=== PATIENT | female | born 1980 | race Caucasian/White ===

== ENCOUNTER 2019-03-18 10:59 | Observation (INO) | payer MEDICAID, OTHER ==
[2019-03-18] MEDS ORDERED: PREN-96 PO (11:25)
== END 2019-03-18 12:27 | disposition home or self-care (01) | DRG 861 ==
LOC: LDRP 10:59
PROVIDERS: ADMIT Obstetrics & Gynecology; ATTEND Obstetrics & Gynecology
DX: Z34.93 Encounter for supervision of normal pregnancy, unspecified, third trimester (principal); O48.0 Post-term pregnancy; O09.523 Supervision of elderly multigravida, third trimester; Z3A.40 40 weeks gestation of pregnancy
CPT/HCPCS: 59025; 76818; 81002; G0378

== ENCOUNTER 2019-03-20 19:56 | Inpatient (IN) | payer MEDICAID ==
[~2019-03-20] VITALS: Ht 175.3 cm; Wt 121.1 kg
[~2019-03-20 19:56] MED LIST: PREN-96 PO
[2019-03-20 21:13] LABS: Basophils # (auto) 0 uL; Basophils % (auto) 0.5 % (0.0-2.0); Eosinophils # (auto) 0.1 uL; Eosinophils % (auto) 0.8 % (0.0-7.0); Hematocrit 35.6 % (36.0-46.0); Hemoglobin 11.8 g/dL (12.2-16.2); Lymphocytes # (auto) 1.7 uL; Lymphocytes % (auto) 20.5 % (10.0-50.0); Mean Corpuscular Hemoglobin 27.8 pg (28.0-32.0); Mean Corpuscular Hgb Conc. 33.3 g/dL (32.0-36.0); Mean Corpuscular Volume 83.7 fL (80.0-100.0); Monocytes # (auto) 0.8 uL; Monocytes % (auto) 9.3 % (0.0-12.0); Neutrophils # (auto) 5.6 uL; Neutrophils % (auto) 68.9 % (37.0-80.0); Platelet Count (auto) 169 10^3/uL (140-450); Red Blood Cells 4.26 10^6/uL (4.0-5.20); Red Cell Distribution Width 14.1 % (11.8-14.3); White Blood Cell 8.2 10^3/uL (4.4-10.8)
[2019-03-20 21:15] LABS: Urine Bacteria NONE SEEN /hpf (None Seen); Urine Blood Negative /uL (Negative); Urine Hyaline Cast FEW /lpf (0 - 2); Urine Mucus FEW (None Seen); Urine Specific Gravity 1.015 (1.001-1.035); Urine WBC 10 /hpf (0 - 5)
[2019-03-20 21:27] LABS: INR < 0.93 (0.9-1.15); Partial Thromboplastin Time 23.1 sec (23.64-32.05)
[2019-03-20 21:33] LABS: Albumin 2.8 g/dL (3.4-5.0); Calcium 8.6 mg/dL (8.5-10.1); Potassium 3.8 mmol/L (3.5-5.1); Uric Acid 4.9 mg/dL (2.6-6.0)
[2019-03-20 21:36] LABS: BUN/Creatinine Ratio 14.5; Bilirubin, Total 0.3 mg/dL (0.2-1.0); Total Protein 7.3 g/dL (6.4-8.2)
[2019-03-20] MEDS ORDERED: MAGNESIUM SULFATE 100 ML IV STA (22:00)
[2019-03-20] MEDS ORDERED: LACTATED RINGER'S 1,000 ML IV SCH ×3 (22:00→22:45)
[2019-03-20] MEDS ORDERED: LACT. RINGERS/OXYTOCIN 20UNITS 1,000 ML IV SCH (22:02)
[2019-03-20] MEDS ORDERED: MAGNESIUM SULFATE 40MG/ML 1,000 ML IV ONE (22:05)
[2019-03-20] MEDS ORDERED: MAGNESIUM SULFATE 100 ML IV ONE (22:05)
[2019-03-20] MEDS ORDERED: hydrALAZINE HCL 20 MG/ML VL ONE (22:07)
[2019-03-20] MEDS ORDERED: CARBOPROST TROMETHAMINE 250 MCG/1ML VIAL IM PRN (22:15)
[2019-03-20] MEDS ORDERED: hydrALAZINE HCL 20 MG/ML VL IV ONE (22:15)
[2019-03-20] MEDS ORDERED: DERMOPLAST 60ML BOTTLE TOP PRN (22:15)
[2019-03-20] MEDS ORDERED: WITCH HAZEL-GLYCERIN PAD TOP PRN (22:15)
[2019-03-20] MEDS ORDERED: LIDOCAINE 2%HCL (LOCAL ANESTH.) INJ 20ML MDV ID PRN (22:15)
[2019-03-20] MEDS ORDERED: PHISODERM TOP SOLN 240ML BTL TOP PRN (22:15)
[2019-03-20] MEDS: MAGNESIUM SULFATE 40MG/ML 1,000 ML IV SCH (22:37)
[2019-03-21] MEDS ORDERED: hydrALAZINE HCL 20 MG/ML VL IV PRN ×2 (07:15→18:45)
[2019-03-21] MEDS ORDERED: ACETAMINOPHEN 325 MG TAB PO PRN (07:15)
[2019-03-21] MEDS ORDERED: NALBUPHINE HCL 10 MG/1ml INJECTION IV PRN ×2 (15:30→18:45)
[2019-03-21] MEDS: MAGNESIUM SULFATE 40MG/ML 1,000 ML IV SCH (17:44)
[2019-03-21] MEDS ORDERED: ONDANSETRON HCL 4 MG/2 ML VIAL IV PRN (18:00)
[2019-03-21] MEDS ORDERED: DIPHENOXYLATE W/ATROPINE 2.5 MG TAB PO PRN (19:00)
[2019-03-21] MEDS: ACETAMINOPHEN 325 MG TAB PO PRN (21:51)
--- NOTE | 2019-03-21 22:15 | NUR ---
Ambulation: Patient OOB with standby assistance by RN. Patient ambulated to chair with steady gait. . Clean gown provided and bed linen changed. Patient ambulated back to bed with steady gait and no distress noted.
--- NOTE | 2019-03-21 23:00 | NUR ---
Teaching: Reviewed information in [facility] booklet with patient. Discussed benefits of and risks associated with not . Discussed different positions, proper latch, feeding cues, and baby-led . Provided information of medication side effects related to . All questions and concerns addressed at this time. Patient verbalized understanding of information.
[2019-03-21] MEDS: IBUPROFEN 600 MG TAB PO PRN (23:09)
[2019-03-21 23:15] VITALS: BP 135/75
[2019-03-22] VITALS (19 sets, daily range): BP systolic 110–140; BP diastolic 56–88
[2019-03-22] MEDS ORDERED: RHO (D) IMMUNE GLOBULIN 300 MCG INJ IM ONE (00:30)
--- NOTE | 2019-03-22 01:40 | NUR ---
Dr. Dillon calls [facility] for update on PT's last Magnesium level - 4.1 mg/dl. orders received to re-start Magnesium Sulfate at 2gm/hr for a 12 hour duration. Primary nurse, Alexi Mosher RN, given update on aforementioned orders.
[2019-03-22] MEDS ORDERED: MAGNESIUM SULFATE 40MG/ML 1,000 ML IV SCH ×2 (01:46→10:30)
[2019-03-22] MEDS ORDERED: LACTATED RINGER'S 1,000 ML IV SCH (02:00)
--- NOTE | 2019-03-22 03:00 | NUR ---
DTRS 2 +, BREATH SOUNDS EQUAL AND UNLABORED, NO CLONUS NOTED. BLE 1 + NO PITTING EDEMA REMAINS UNCHANGED
--- NOTE | 2019-03-22 04:00 | NUR ---
DTRS 2 +, BREATH SOUNDS EQUAL AND UNLABORED, NO CLONUS NOTED. BLE 1 + NO PITTING EDEMA REMAINS UNCHANGED
--- NOTE | 2019-03-22 05:00 | NUR ---
DTRS 2 +, BREATH SOUNDS EQUAL AND UNLABORED, NO CLONUS NOTED. BLE 1 + NON PITTING EDEMA REMAINS UNCHANGED
--- NOTE | 2019-03-22 05:58 | NUR ---
DTRS 2 +, BREATH SOUNDS EQUAL AND UNLABORED, NO CLONUS NOTED. BLE 1 + NON PITTING EDEMA REMAINS UNCHANGED
--- NOTE | 2019-03-22 06:36 | NUR ---
bedside report to SELENA Darby. IV lines verified, MAG sulfate at 50ml/HR 2G/HR , LR at 75ML/HR.
--- NOTE | 2019-03-22 06:53 | NUR ---
DTR'S +2, RESP RATE 16
--- NOTE | 2019-03-22 08:04 | NUR ---
DTR'S 2+, RESP RATE 20
--- NOTE | 2019-03-22 09:00 | NUR ---
Dtr's 2+, resp rate 20
--- NOTE | 2019-03-22 09:24 | NUR ---
called lab for stat therapeutic mag level.
--- NOTE | 2019-03-22 10:05 | NUR ---
dtr's 2+, resp 18,temp 98.1
--- NOTE | 2019-03-22 10:22 | NUR ---
DR. CUNNINGHAM AT NURSING STATION AND AWARE OF THERAPUTIC MAG LEVEL OG 5.6. NEW ORDERS RECEIVED DECREASE MAG TO 1 GRAM 25ML/HOUR AND D/C IT AT 3 PM TODAY.
--- NOTE | 2019-03-22 10:24 | NUR ---
Alexi COELHO RN AT BEDSIDE TO CONFIRM MAG PUMP RUNNING AT 25 ML/HOUR [address] CUNNINGHAM ORDERED.
[2019-03-22 10:27] LABS: RPR Non Reactive (Non Reactive)
[2019-03-22] MEDS: ACETAMINOPHEN 325 MG TAB PO PRN (10:28)
--- NOTE | 2019-03-22 11:05 | NUR ---
DTR'S +2, RESP 16
--- NOTE | 2019-03-22 12:10 | NUR ---
DTR'S 2+, RESP RATE 16
--- NOTE | 2019-03-22 13:05 | NUR ---
DTR'S 2+, RESP RATE 16
--- NOTE | 2019-03-22 14:08 | NUR ---
DTR'S 2+, RESP RATE 16
--- NOTE | 2019-03-22 15:00 | NUR ---
DTR'S 2+, RESP 16
--- NOTE | 2019-03-22 15:00 | NUR ---
MEDICATION MAGNESIUM STOPPED PER DR. CUNNINGHAM ORDERED.
[2019-03-22] MEDS: IBUPROFEN 600 MG TAB PO PRN (15:30)
--- NOTE | 2019-03-22 15:30 | NUR ---
Mendes catheter dc'd Order to discontinue mendes catheter. Mendes dc'd with clean technique following deflation of balloon. Patient tolerated well with no complaints of pain. Continue care.
--- NOTE | 2019-03-22 17:53 | NUR ---
Ambulation: Patient OOB with standby assistance by RN. Patient ambulated to bathroom with steady gait. Patient able to void without difficulty. [facility] teaching provided with returned demonstration by patient. Clean gown provided and bed linen changed. Patient ambulated back to bed with steady gait and no distress noted.
[2019-03-23 03:06] VITALS: BP 125/70
[2019-03-23 07:28] VITALS: BP 125/70
[2019-03-23] MEDS ORDERED: TETANUS-DIPTH-ACEL PERTUSSIS 0.5ML SYRG IM ONE (08:15)
--- NOTE | 2019-03-23 10:00 | NUR ---
Discharge: Discharge instructions given as ordered. Pt encouraged to follow up with IT AUDIT MANAGER as instructed. All questions and concerns addressed. Patient verbalized understanding. Medication reconciliation completed and copy given to patient. All required/requested vaccines given and copies of vaccinations given to patient. Patient encouraged to prepare to depart unit.
--- NOTE | 2019-03-23 10:25 | NUR ---
Discharge: Patient taken to vehicle via wheelchair with all personal belongings, accompanied by staff and family member. No distress noted at time of departure, no adverse changes in status since initial assessment.
== END 2019-03-23 10:25 | disposition home or self-care (01) | DRG 560 ==
LOC: LDRP 19:56 → OBSVTOIN 22:00 → LDRP 03-21 16:07
PROVIDERS: ADMIT Specialist; ATTEND Specialist
PROC: 10E0XZZ Delivery of Products of Conception, External Approach (ICD-10-PCS; principal; 2019-03-20)
PROC: 0HQ9XZZ Repair Perineum Skin, External Approach (ICD-10-PCS; 2019-03-20)
PROC: 3E0334Z Introduction of Serum, Toxoid and Vaccine into Peripheral Vein, Percutaneous Approach (ICD-10-PCS; 2019-03-22)
DX: O48.0 Post-term pregnancy (principal); O99.345 Other mental disorders complicating the puerperium; F53.0 Postpartum depression; O13.4 Gestational [pregnancy-induced] hypertension without significant proteinuria, complicating childbirth; O14.94 Unspecified pre-eclampsia, complicating childbirth; O70.0 First degree perineal laceration during delivery; O36.0930 Maternal care for other rhesus isoimmunization, third trimester, not applicable or unspecified; O26.893 Other specified pregnancy related conditions, third trimester; Z37.0 Single live birth; Z3A.40 40 weeks gestation of pregnancy; Z67.11 Type A blood, Rh negative
CPT/HCPCS: 36415; 51702; 59025; 59409; 76818; 80053; 81001; 81002; 83735; 84112; 84550; 85025; 85610; 85730; 86592; 86850; 86900; 86901; 90384; 90715; 94762; 96361; 96366; 96372; 96374; 96375; G0378; J2405; J2590